=== PATIENT | female | born 1960 | race Caucasian/White ===

== ENCOUNTER → 2018-03-31 07:40 | Outpatient (CLI) | payer OTHER, SELFPAY ==
--- NOTE | 2018-03-31 07:46 | CT_ITS ---
STUDY: CT MAXILLOFACIAL SINUSES REASON FOR EXAM: Female, 58 years old. Sinusitis RADIATION DOSAGE (If Supplied By Facility): CTDIvol = ( 33.06 ) mGy, DLP = ( 796.66 ) mGycm TECHNIQUE: The patient was scanned in a multi detector CT scanner. High resolution axial imaging was performed without the administration of intravenous contrast material. Sagittal and coronal images were reconstructed. # of Images: [id number] Individualized dose optimization techniques were used for this CT. COMPARISON: None. FINDINGS: FRONTAL SINUSES: Normal aeration, without mucosal inflammatory disease. ETHMOIDAL SINUSES: Normal aeration, without mucosal inflammatory disease. MAXILLARY SINUSES: Normal aeration, without mucosal inflammatory disease. SPHENOIDAL SINUSES: Normal aeration, without mucosal inflammatory disease. There is patency of the bilateral maxillary infundibuli with normal uncinate processes, ethmoid bullae, and hiatus semilunaris. Normal bilateral middle turbinates. Normal bilateral inferior turbinates. Normal midline nasal septum. There is patency of the bilateral nasal airways. The visualized osseous structures are normal. The visualized bilateral orbital contents are normal. CT/Sinus/Facial Bone IMPRESSION: Normal CT examination of the maxillofacial sinuses. Electronically Signed: Chilo Edmond, at 20:13 EDT Tel , Service support ,
== END ==
PROVIDERS: Family Provider Family Medicine; PCP Family Medicine; Referring Provider Otolaryngology Otolaryngology/Facial Plastic Surgery; Visit Provider Otolaryngology Otolaryngology/Facial Plastic Surgery
DX: J32.9 Chronic sinusitis, unspecified (principal)
CPT/HCPCS: 70486

== ENCOUNTER → 2023-07-19 | Outpatient (CLI) | payer OTHER, SELFPAY | END | disposition home or self-care (01) | PROVIDERS: PCP Family Medicine; Referring Provider Internal Medicine Pulmonary Disease; Visit Provider Internal Medicine Pulmonary Disease | DX: G47.10 Hypersomnia, unspecified (principal) ==

== ENCOUNTER → 2023-12-29 | Outpatient (CLI) | payer OTHER, SELFPAY | END | disposition home or self-care (01) | LOC: LAB 10:44 → LABSPEC 10:45 | PROVIDERS: PCP Family Medicine; Referring Provider Internal Medicine Pulmonary Disease; Visit Provider Internal Medicine Pulmonary Disease | DX: R05.9 Cough, unspecified (principal) | CPT/HCPCS: 87070; 87205 ==

== ENCOUNTER → 2024-08-21 | Outpatient (CLI) | payer OTHER, SELFPAY ==
--- NOTE | 2024-08-21 12:39 | ECHOD_ITS ---
Reason For Study Reason For Study: Syncope Procedure This was a 2D Doppler, Color Flow transthoracic echocardiogram. Exam performed in department. Left Ventricle Normal LV size. The estimated ejection fraction is 65 %. No evidence for diastolic dysfunction. No regional wall motion abnormalities noted. Right Ventricle Normal RV size. Normal systolic function. Atria The left and right atria are normal. Bubble contrast study is negative for PFO/ASD. No doppler evidence for ASD. Mitral Valve There is no mitral valve stenosis. Trivial mitral valve insufficiency. Tricuspid Valve There is no tricuspid stenosis. Trivial tricuspid valve insufficiency. Unable to estimate RV systolic pressure due to insufficient tricuspid regurgitant envelope. Aortic Valve Trisinus/trileaflet aortic valve. Aortic sclerosis, no stenosis. There is no aortic stenosis. No aortic valve insufficiency. Pulmonic Valve There is no pulmonic valvular stenosis. No pulmonic valve insufficiency. Great Vessels Normal sized aortic root. Pericardium/Pleural No pericardial effusion. Medication 22 gauge I.V. with prn adaptor inserted into right arm. Performed a rapid injection of agitated mix of 9 cc saline and 1cc air to assess for atrial septal defect. MMode/2D Measurements & Calculations LVIDd: 4.2 cm IVSd: 1.4 cm Ao root diam: 3.1 cm LVIDs: 2.7 cm LVPWd: 0.90 cm RVDd: 3.5 cm FS: 36.6 % LAV(MOD-bp): 38.0 ml LVAd ap4: 24.5 cm2 SV(MOD-sp4): 39.3 ml LAV(MOD-bp) Indexed: 18.2 ml/m2 LVLd ap4: 8.0 cm SI(MOD-sp4): 18.8 ml/m2 LAV(MOD-sp2): 32.2 ml EDV(MOD-sp4): 59.9 ml LAV(MOD-sp4): 43.9 ml EDV(sp4-el): 63.5 ml LVAs ap4: 12.6 cm2 LVLs ap4: 6.8 cm ESV(MOD-sp4): 20.6 ml ESV(sp4-el): 19.9 ml EF(MOD-sp4): 65.6 % EF(sp4-el): 68.7 % SV(sp4-el): 43.6 ml LA A4 area: 16.9 cm2 LA dimension(2D): 3.7 cm RA A4 area: 13.7 cm2 TAPSE: 2.2 cm Time Measurements MV dec time: 0.21 sec Doppler Measurements & Calculations MV E max isiah: 109.9 cm/sec Lat Peak E' Isiah: 9.9 cm/sec Med Peak E' Isiah: 11.5 cm/sec MV A max isiah: 130.6 cm/sec E/E' lat: 11.1 E/E' med: 9.6 MV E/A: 0.84 MV V2 max: 132.0 cm/sec MV P1/2t max isiah: 132.0 cm/sec Ao V2 max: 175.5 cm/sec MV max P.0 mmHg MV P1/2t: 71.8 msec Ao max P.3 mmHg MV V2 mean: 78.2 cm/sec MV dec slope: 538.8 cm/sec2 Ao V2 mean: 124.9 cm/sec MV mean P.9 mmHg MVA(P1/2t): 3.1 cm2 Ao mean P.1 mmHg MV V2 VTI: 36.7 cm Ao V2 VTI: 39.2 cm AV (velocity ratio): 0.66 LV V1 max: 117.3 cm/sec MR max isiah: 535.8 cm/sec LV V1 max P.5 mmHg MR max P.8 mmHg LV V1 mean P.3 mmHg LV V1 mean: 86.6 cm/sec LV V1 VTI: 25.8 cm ECHO/Echo Complete Interpretation Summary The estimated ejection fraction is 65 %. No evidence for diastolic dysfunction. Trivial mitral valve insufficiency. Ordering Physician: Dario Colon V Referring Physician: Dario Colon V Performed By: Rosendo Bender RCS
== END | disposition home or self-care (01) ==
LOC: CVS 12:39
PROVIDERS: Referring Provider Internal Medicine Pulmonary Disease; Visit Provider Internal Medicine Pulmonary Disease
DX: R55 Syncope and collapse (principal)
CPT/HCPCS: 93306; A4216